=== PATIENT | female | born 1975 | race Two or more races ===

== ENCOUNTER 2017-03-11 11:10 | Emergency (ER) | payer OTHER ==
[~2017-03-11] VITALS: Ht 167.6 cm; Wt 122.7 kg
[2017-03-11 11:13] VITALS: BP 136/89
[2017-03-11] MEDS ORDERED: BACITRACIN ZINC OINT UDPKT TOP ONE (11:30)
== END 2017-03-11 12:12 | disposition home or self-care (01) ==
LOC: ER 11:50
DX: S93.401A Sprain of unspecified ligament of right ankle, initial encounter (principal); W01.0XXA Fall on same level from slipping, tripping and stumbling without subsequent striking against object, initial encounter; Y93.89 Activity, other specified; Y92.89 Other specified places as the place of occurrence of the external cause; Y99.8 Other external cause status
CPT/HCPCS: 73610; 73630; 99284